=== PATIENT | female | born 1965 | race Caucasian/White ===

== ENCOUNTER 2017-02-04 07:32 | Inpatient (IN) | payer OTHER ==
[~2017-02-04] VITALS: Ht 175.3 cm; Wt 60.8 kg
[2017-02-04 14:15] VITALS: BP 113/78
[2017-02-04] MEDS ORDERED: LOPERAMIDE HCL 2 MG CAPSULE PO PRN ×2 (14:15)
[2017-02-04] MEDS ORDERED: MIRALAX 17 GM POWD.PACK PO PRN (14:15)
[2017-02-04] MEDS ORDERED: IBUPROFEN 400 MG TABLET PO PRN (14:15)
[2017-02-04] MEDS ORDERED: MAGNESIUM HYDROXIDE 30 ML LIQUID UDC PO PRN (14:15)
[2017-02-04] MEDS ORDERED: diphenhydrAMINE 50 MG CAPSULE PO PRN (14:15)
[2017-02-04] MEDS ORDERED: LORAZEPAM 2 MG/1 ML VIAL IM PRN (14:15)
[2017-02-04] MEDS ORDERED: TRAZODONE 50 MG TABLET PO PRN (14:15)
[2017-02-04] MEDS ORDERED: MAG HYDROX/AL HYDROX/SIMETH 30 ML LIQUID UDC PO PRN (14:15)
[2017-02-04] MEDS ORDERED: THIAMINE HCL 200 MG/2 ML VIAL IM ONE (14:15)
[2017-02-04] MEDS ORDERED: DICYCLOMINE HCL 20 MG TABLET PO PRN (14:15)
[2017-02-04] MEDS ORDERED: CLONIDINE HCL 0.1 MG TABLET PO PRN (14:15)
[2017-02-04] MEDS ORDERED: ONDANSETRON 4 MG/2 ML VIAL IM PRN (14:15)
[2017-02-04] MEDS ORDERED: ACETAMINOPHEN 325 MG TABLET PO PRN (14:15)
[2017-02-04] MEDS ORDERED: ONDANSETRON ODT 4 MG TAB.RAPDIS SL PRN (14:15)
[2017-02-04] MEDS ORDERED: LORAZEPAM 1 MG TABLET PO PRN ×2 (14:15)
--- NOTE | 2017-02-04 14:15 | NUR ---
INTAKE ASSESSMENT Received patient Aox4, stable, and ambulatory. Vital signs stable. Patient reports an allergy to PCN. Patient denies seizure history. Patient brought medications with her, none were controlled. Explained unit policies and protocols and patient verbalized understanding. Will admit patient upon arrival to 3rd floor.
--- NOTE | 2017-02-04 14:30 | NUR ---
ADMISSION NOTE VS: BP-113/78 HR-67 TEMP-96.1 RR-16 O2-95% HEIGHT: 5'9 WEIGHT: 134 LBS ALLERGIES: PCN [id number] KIM Patient is a 51 year old female admitted to [facility] on 02/04/17 at 1430. Patient is under the care of Dr. Ponce for ETOH and Benzo dependence. Patient denies suicidal or homicidal ideations at this time. Patient denies suicidal or homicidal ideations at this time. Patient denies being hospitalized in the last 30 days. Patient denies chest pain or SOB. Upon assessment, patient's skin is intact. Upon admission, CIWA 2. AOX4 and able to answer necessary questions for admission process. Patient is full code and regular diet. VS WNL. Patient denies any history of seizures. Breathing is even and unlabored. Patient ambulates with steady gait. Patient states her bowel habits are normal. Patient reports PMH of anxiety, depression, and hypothyroidism. Patient brought home medications with her which were reconciled. Patient reports this is her first time in treatment. Patient reports living alone. Patient states she does not smoke cigarettes. Dr. Ponce has been notified and placed client under observation. All needs have been met. Patient has been oriented to staff, unit, and room. All safety measures in place. Bed locked and in lowest position call rankin within reach. Will continue to monitor. Substance Abuse: ETOH 6 oz glass of white wine 3 times a week, last drank 6 oz 2 glass of white wine Po during her flight 02/04/17 at 1200 Xanax-1 mg Po as needed every 6 hours, last took 1 mg 02/03/17
[2017-02-04] MEDS ORDERED: ALPR1TAB7 PO (14:37)
[2017-02-04] MEDS ORDERED: SPIR25TA4 PO (14:37)
[2017-02-04] MEDS ORDERED: LEVO50TA PO (14:37)
[2017-02-04 15:05] LABS: *URINE HCG, QUAL NEGATIVE (NEGATIVE)
[2017-02-04] MEDS: GABAPENTIN 300 MG CAPSULE PO SCH ×2 (15:35→20:21)
[2017-02-04 16:00] VITALS: BP 106/72
[2017-02-04 17:06] LABS: ALANINE AMINOTRANSFERASE 20 U/L (14-59); ALKALINE PHOSPHATASE 60 U/L (50-136); AMYLASE 79 U/L (25-115); ASPARTATE AMINOTRANSFERASE 23 U/L (15-37); BILIRUBIN,TOTAL 0.2 mg/dL (0.2-1.0); CARBON DIOXIDE 33 mmol/L (21-32); CHLORIDE 105 mmol/L (98-107); GLUCOSE 80 mg/dL (74-106); LIPASE 229 U/L (73-393); MAGNESIUM 2.3 mg/dL (1.8-2.4); POTASSIUM 5.3 mmol/L (3.5-5.1); TOTAL PROTEIN, SERUM 7.1 g/dL (6.4-8.2); UREA NITROGEN, BLOOD 18 mg/dL (7-18)
[2017-02-04 17:09] LABS: BASOPHILS % (AUTO) 0.3 % (0.0-2.0); EOSINOPHILS # (AUTO) 0.3 K/uL (0.0-0.7); EOSINOPHILS % (AUTO) 4.9 % (0.0-7.0); HEMATOCRIT 41.8 % (37-47); HEMOGLOBIN 14.2 G/DL (12.0-16.0); LYMPHOCYTES # (AUTO) 1.7 K/UL (0.8-4.8); LYMPHOCYTES % (AUTO) 25.5 % (20.5-51.5); MEAN CORPUSCULAR HEMOGLOBIN 32.1 UUG (27.0-31.0); MEAN CORPUSCULAR HGB CONC 34 g/dL (32.0-37.0); MEAN CORPUSCULAR VOLUME 94.2 FL (81.0-99.0); MONOCYTES # (AUTO) 0.5 K/UL (0.1-1.30); MONOCYTES % (AUTO) 7.9 % (0.0-11.0); NEUTROPHILS # (AUTO) 4.1 K/UL (1.8-8.9); NEUTROPHILS % (AUTO) 61.4 % (38.5-71.5); PLATELET COUNT (AUTO) 256 K/UL (150-450); RED BLOOD CELL COUNT(AUTO) 4.44 MIL/UL (4.2-5.4); WHITE BLOOD COUNT (AUTO) 6.6 K/UL (4.0-11.2)
[2017-02-04 17:15] LABS: THYROID STIMULATING HORMONE 2.819 mIU/mL (0.358-3.740)
[2017-02-04 17:29] LABS: ETHANOL < 3 MG/DL (0-0)
[2017-02-04 17:47] LABS: *AMPHETAMINE, URINE NEGATIVE (NEGATIVE); *BARBITURATE, URINE NEGATIVE (NEGATIVE); *CANNABINOID, URINE NEGATIVE (NEGATIVE); *COCCAINE, URINE NEGATIVE (NEGATIVE); *OPIATE, URINE NEGATIVE (NEGATIVE); *PHENCYCLIDINE SCREEN,URINE NEGATIVE (NEGATIVE)
[2017-02-04] MEDS ORDERED: PROG200C3 PO (18:19)
[2017-02-04] MEDS ORDERED: FLUO40CA8 PO (18:19)
--- NOTE | 2017-02-04 19:14 | NUR ---
END OF SHIFT NOTE Gave report to night nurse, 51 year old female admitted for ETOH/Benzo dependence. Pt is allergic to PCN, Full code, Regular diet. Pt reported PMH of Anxiety, depression, Hypothyroidism. Pt reported first time in treatment. Skin intact warm and dry to touch. Pt did not receive any PRN, Last CIWA-1. Encouraged PO fluids as tolerated. Safety measures in place, Call light within reach. Pt endorsed to night nurse in stable condition.
[2017-02-04 20:00] VITALS: BP 105/67
--- NOTE | 2017-02-04 20:00 | NUR ---
START OF SHIFT NOTE PATIENT IN HER ROOM. ALERT AND ORIENTED X 4. PATIENT REPORTS ANXIOUS AND REQUESTING TO HAVE SLEEP AID LATER. PATIENT DENIES ANY PAIN, NO HEADACHE. NO N/V. NO SWEATING. DENIES SI/HI. RECEIVED REPORT FROM DAY SHIFT NURSE. PATIENT IS A 51 YEAR OLD FEMALE, ADMITTED FOR ETOH/BENZO DEPENDENCE. PATIENT IS ON 4 DAYS ATIVAN TAPER TO START TOMORROW. PATIENT IS FULL CODE, ALLERGIC TO PENICILLIN AND ON REGULAR DIET. PATIENT DRINKS 6OZ OF 3-4 GLASS OF WHITE WINE 3 TO 4 TIMES A WEEK SINCE 15 YEARS OLD. PATIENT IS ALSO ON XANAX 1 MG PO Q6HRS PRN PRESCRIBED FOR 9 MONTHS . PATIENT REPORTS PMH OF ANXIETY, DEPRESSION AND HYPOTHYROIDISM. FIRST TIME IN DETOX. SKIN INTACT. PATIENT DID NOT REQUIRE ANY PRN MEDICATION. LAST CIWA 1. ON FALL/SEIZURE PRECAUTION. SAFETY MEASURES IN PLACE. CALL LIGHT IN REACH. WILL CONTINUE TO MONITOR.
[2017-02-04] MEDS: HYDROXYZINE PAMOATE 25 MG CAPSULE PO PRN (20:21)
--- NOTE | 2017-02-04 20:21 | NUR ---
PRN VISTARIL ADMINISTRATION PATIENT REPORTS ANXIETY. PRN VISTARIL GIVEN. WILL MONITOR FOR EFFECTIVENESS
--- NOTE | 2017-02-04 21:21 | NUR ---
PRN VISTARIL RE-ASSESSMENT PATIENT IN BED ASLEEP. NO S/S OF DISTRESS. RESPIRATION EVEN AND UNLABORED. SAFETY MEASURES IN PLACE. CALL LIGHT IN REACH. WILL CONTINUE TO MONITOR.
[2017-02-05] VITALS: BP 112/66
[2017-02-05 04:00] VITALS: BP 103/70
[2017-02-05 06:06] LABS: HEPATITIS B SURFACE AG Negative (Negative)
--- NOTE | 2017-02-05 07:36 | NUR ---
END OF SHIFT NOTE PATIENT REMAIN ALERT AND ORIENTED X 4. PATIENT REPORTED ANXIOUS . PATIENT DENIES ANY PAIN, NO HEADACHE. NO N/V. NO SWEATING. DENIES SI/H DURING SHIFT. PATIENT IS A 51 YEAR OLD FEMALE, ADMITTED FOR ETOH/BENZO DEPENDENCE. PATIENT IS ON 5 DAYS ATIVAN TAPER TO START TODAY. PATIENT IS FULL CODE, ALLERGIC TO PENICILLIN AND ON REGULAR DIET. PATIENT DRINKS 6OZ OF 3-4 GLASS OF WHITE WINE 3 TO 4 TIMES A WEEK SINCE 15 YEARS OLD. PATIENT IS ALSO ON XANAX 1 MG PO Q6HRS PRN PRESCRIBED FOR 9 MONTHS . PATIENT REPORTED 97.9 PMH OF ANXIETY, DEPRESSION AND HYPOTHYROIDISM. FIRST TIME IN DETOX. SKIN INTACT. PATIENT WAS GIVEN PRN VISTARIL DURING SHIFT . LAST CIWA 1 . ON FALL/SEIZURE PRECAUTION. SAFETY MEASURES IN PLACE. CALL LIGHT IN REACH. WILL CONTINUE TO MONITOR. SLEPT 9 HOURS. FLUID INTAKE 592 ML. VOIDED X 2 . NO BM.
--- NOTE | 2017-02-05 07:50 | NUR ---
START OF SHIFT Rcvd endorsement from night nurse, client is is bed, she presents with anxious mood, flat affect, skin warm/moist to touch, she denies N/V/D or SI/HI. Encouraged to attend group therapy to learn skills to maintain sober. Encouraged to increase fluid therapy as tolerated to facilitate detox. She is on 5 day Ativan taper first dose at 0900 as indicated to manage symptoms of withdrawal. Last CIWA 1. She is full code, regular diet, allergy to PCN. She Adequate intake and output. Call light within reach. Safety measures instituted.
[2017-02-05] MEDS: MULTIVITAMINS,THERAPEUTIC TABLET PO SCH (08:39)
[2017-02-05] MEDS: GABAPENTIN 300 MG CAPSULE PO SCH ×3 (08:43→20:13)
[2017-02-05] MEDS: FOLIC ACID 1 MG TABLET PO SCH (08:43)
[2017-02-05] MEDS: DOCUSATE SODIUM 250 MG CAPSULE PO SCH (08:43)
[2017-02-05] MEDS: THIAMINE HCL 100 MG TABLET PO SCH (08:43)
[2017-02-05] MEDS: TUBERCULIN,PURIF.PROT.DERIV. 5 TU/0.1 ML TEST ID ONE ×2 (08:44→09:00)
[2017-02-05] MEDS: LORAZEPAM 1 MG TABLET PO SCH ×3 (08:44→20:13)
[2017-02-05 08:55] VITALS: BP 112/76
[2017-02-05] MEDS ORDERED: 5 DAY TAPER OF LORAZEPAM -SERENITY PROTOCOL PO PRN (09:00)
[2017-02-05 12:55] VITALS: BP 110/72
--- NOTE | 2017-02-05 15:17 | NUR ---
Therapist informed client of group times. Client said she is not feeling well.
[2017-02-05] MEDS: FLUOXETINE HCL 20 MG CAPSULE PO SCH (15:40)
[2017-02-05] MEDS ORDERED: PATIENT MAY USE OWN MED- MD OK PO SCH (16:00)
[2017-02-05] MEDS: PATIENT MAY USE OWN MED- MD OK PO SCH (16:57)
[2017-02-05 16:59] VITALS: BP_SYST 101; BP_SYST 122; BP_DIAS 62; BP_DIAS 81
--- NOTE | 2017-02-05 17:08 | NUR ---
MD NOTIFICATION Dr. Stubbs notified of cx-ray impression 1. Questionable 7 mm calcified nodule in the left upper lung peripherally which may represent a granuloma. 2. Otherwise no acute cardiopulmonary disease. Client is in bed, will continue to monitor.
--- NOTE | 2017-02-05 19:45 | NUR ---
END OF SHIFT Endorsed to incoming nurse, client is is bed, she presents with anxious mood, flat affect, fine tremors noted, she denies N/V/D. Ativan taper continues as indicated to manage symptoms of withdrawal. Last CIWA 7. She did not attend group therapy. Adequate intake and output. Call light within reach. Safety measures instituted.
[2017-02-05 20:00] VITALS: BP 107/75
--- NOTE | 2017-02-05 20:00 | NUR ---
START OF SHIFT NOTE PATIENT IN HER ROOM, WATCHING TV. PATIENT REPORTS ANXIETY AND NOTED WITH SLIGHT TREMORS. DENIES N/V/D. DENIES SI/HI. NO PAIN AT THIS TIME. RECEIVED REPORT FROM DAY SHIFT NURSE. PATIENT IS A 51 YEAR OLD FEMALE, ADMITTED FOR ETOH DEPENDENCE. PATIENT IS ON FIRST DAY OF HER 5 DAY ATIVAN TAPER. PATIENT DRINKS 6 OZ OF 3-4 GLASS OF WHITE WINE 3-4 X A WEEK SINCE 15 YEARS OLD. PATIENT IS ALSO ON XANAX 1 MG PO Q6 HOURS PRN PRESCRIBED FOR 9 MONTHS. PATIENT REPORTS PMH OF ANXIETY,DEPRESSION AND HYPOTHYROIDISM. SKIN INTACT.PATIENT DID NOT REQUIRE ANY PRN MEDICATION DURING THE DAY. LAST CIWA 7. ON FALL/SEIZURE PRECAUTION. SAFETY MEASURES IN PLACE. CALL LIGHT IN REACH. WILL CONTINUE TO MONITOR.
[2017-02-05] MEDS: QUETIAPINE FUMARATE 25 MG TABLET PO SCH (20:13)
[2017-02-06] VITALS: BP 107/75
[2017-02-06] MEDS ORDERED: ALBU8HFA4 (02:58)
[2017-02-06 04:00] VITALS: BP 112/73
[2017-02-06] MEDS: PATIENT MAY USE OWN MED- MD OK PO SCH ×2 (06:44→09:07)
--- NOTE | 2017-02-06 07:28 | NUR ---
END OF SHIFT NOTE MONITORED PATIENT THROUGHOUT THE SHIFT. PATIENT IS A 51 YEAR OLD FEMALE, ADMITTED FOR ETOH DEPENDENCE. PATIENT IS ON FIRST DAY OF HER 5 DAY ATIVAN TAPER,TOLERATED WELL . NO ADVERESE REACTION. PATIENT DRINKS 6 OZ OF 3-4 GLASS OF WHITE WINE 3-4 X A WEEK SINCE 15 YEARS OLD. PATIENT IS ALSO ON XANAX 1 MG PO Q6 HRS PRN PRESCRIBED FOR 9 MONTHS. PATIENT REPORTS PMH OF ANXIETY,DEPRESSION AND HYPOTHYROIDISM. SKIN INTACT.PATIENT DID NOT REQUIRE ANY PRN MEDICATION DURING THE DAY. PATIENT IN HER ROOM MOST OF THE SHIFT. ENCOURAGED TO PARTICIPATE IN GROUPS. ON FALL/SEIZURE PRECAUTION. SAFETY MEASURES IN PLACE. CALL LIGHT IN REACH. WILL CONTINUE TO MONITOR. SLEPT 8 HOURS. FLUID INTAKE 296 ML. VOIDED X 2. NO BM. LAST CIWA 1.
--- NOTE | 2017-02-06 07:45 | NUR ---
START OF SHIFT Rcvd endorsement from night nurse, client is is bed, she presents with depressed mood, flat affect and fine tremors, she reports fatigue and restless legs, she denies N/V/D or SI/HI. Encouraged to attend group therapy to learn skills to maintain sober. Encouraged to increase fluid therapy as tolerated to facilitate detox, she verbalized understanding.She denies ant history id withdrawal-induced seizure. Seizure precautions. She is on 2nd of 5 day Ativan taper to manage symptoms of withdrawal. Last CIWA 1@ 0400. She is full code, regular diet, allergy to PCN. She had an uneventful night, slept 8 hrs. Call light within reach. Bed in lowest/locked position. Side rails x 2 up/padded.
[2017-02-06 08:00] VITALS: BP 104/73
[2017-02-06] MEDS: LORAZEPAM 1 MG TABLET PO SCH ×4 (09:06→20:43)
[2017-02-06] MEDS: DOCUSATE SODIUM 250 MG CAPSULE PO SCH (09:06)
[2017-02-06] MEDS: FOLIC ACID 1 MG TABLET PO SCH (09:06)
[2017-02-06] MEDS: GABAPENTIN 300 MG CAPSULE PO SCH ×3 (09:06→20:43)
[2017-02-06] MEDS: MULTIVITAMINS,THERAPEUTIC TABLET PO SCH (09:06)
[2017-02-06] MEDS: THIAMINE HCL 100 MG TABLET PO SCH (09:06)
[2017-02-06] MEDS: FLUOXETINE HCL 20 MG CAPSULE PO SCH (09:07)
[2017-02-06 12:10] VITALS: BP 112/78
[2017-02-06] MEDS ORDERED: TUBERCULIN,PURIF.PROT.DERIV. 5 TU/0.1 ML TEST ID ONE (12:15)
--- NOTE | 2017-02-06 12:17 | NUR ---
Dr. Aaron Merchant saw client regarding screening xray that reveals a granuloma, regarding plan of care is for the client to consent for Tuberculin purified prot test, client consented and TB test was administered to L F/A. Client is asymptomatic she denies any fever, cough or night sweats.
--- NOTE | 2017-02-06 13:50 | NUR ---
Therapist informed client that there is daily group psychotherapy, at 11am and 3:30pm. Therapist explained some benefits of attending, and client related that she would be willing to participate and would attend the 11am group today.
[2017-02-06] MEDS: HYDROXYZINE PAMOATE 25 MG CAPSULE PO PRN (14:06)
--- NOTE | 2017-02-06 14:06 | NUR ---
LAZARO Vistaril Client reports anxiety, she is unable to sit still, Vistaril 50mg PO administered, breathing relaxation techniques instituted, reinforcement needed from client. Risk/benefits discuss, she verbalized understanding. Call light within reach.
--- NOTE | 2017-02-06 15:06 | NUR ---
Reassessment PRN Vistaril Client is in bed, watching TV, she appears less anxious, she stated "I feel a little better, thank you." Vistaril 50mg effective. Call light within reach.
[2017-02-06] MEDS ORDERED: ALBUTEROL SULFATE 1.25 MG/3 ML NEBU NEB PRN (15:15)
[2017-02-06 16:55] VITALS: BP 121/76
--- NOTE | 2017-02-06 19:11 | NUR ---
END OF SHIFT Endorsed to incoming nurse, client is is bed, she presents with depressed mood, flat affect, tremors felt, not observed, she denies N/V/D or night sweats. Ativan taper continues as indicated to manage symptoms of withdrawal. Last CIWA 5. She was compliant with group therapy. Adequate intake 1447mL and output void x 5. Call light within reach. Safety measures instituted.
[2017-02-06 20:00] VITALS: BP 116/66
--- NOTE | 2017-02-06 20:00 | NUR ---
Start of Shift Pt is a 51 year old female admitted for ETOH dependence, placed on a 5 day Ativan taper. PMH: Anxiety, Depression and Hypothyroidism. Allergic to PCN, regular diet, fall/seizure precautions and full code. Upon assessment, pt reports mild anxiety, chills throughout body, skin noted to be flushed, respirations even/unlabored, denies SOB/chest pain, denies n/v/d, bowel sounds active x4, abdomen soft. Safety measures in place, call light within reach, side rails up x2, bed locked and in low position. Will continue to monitor.
[2017-02-06] MEDS: QUETIAPINE FUMARATE 25 MG TABLET PO SCH (20:43)
[2017-02-07] VITALS: BP 108/72
--- NOTE | 2017-02-07 | NUR ---
Vital Signs BP 108/72, Pulse 68, respirations 16, SpO2 97, temp 97.7, pain 0/10 CIWA deferred d/t pt sleeping - to assess while pt is awake as ordered. Safety measures in place. Will continue to monitor.
[2017-02-07 04:00] VITALS: BP 118/72
--- NOTE | 2017-02-07 04:00 | NUR ---
Vital Signs BP 118/72, Pulse 55, respirations 12, SpO2 97%, temp 98.2, pain 0/10 CIWA deferred d/t pt sleeping - to assess while pt is awake as ordered. Safety measures in place. Will continue to monitor.
[2017-02-07] MEDS: PATIENT MAY USE OWN MED- MD OK PO SCH ×2 (06:45→08:20)
--- NOTE | 2017-02-07 07:00 | NUR ---
End of Shift Pt is a 51 year old female admitted for ETOH dependence, placed on a 5 day Ativan taper. PMH: Anxiety, Depression and Hypothyroidism. Allergic to PCN, regular diet, fall/seizure precautions and full code. During shift, pt presented with mild anxiety, chills throughout body, skin noted to be flushed - scheduled taper medications administered, effective in management of s/s of withdrawal, as reported per pt, CIWA 4. No PRN medications administered. Pt slept for 8 hours, intake of 500 ml PO and voids x2. Safety measures in place, call light within reach, side rails up x2, bed locked and in low position. Endorsed to day shift.
--- NOTE | 2017-02-07 07:30 | NUR ---
START OF SHIFT NOTE Pt is a 51 year old female admitted for ETOH dependence, placed on a 5 day Ativan taper. No history of seizures. History of depression, anxiety, and thyroid disease. Patient is laying in bed awake. Respirations even and unlabored. Patient reports,"feeling ok, just a little groggy". Slept 8 hours last night. Last CIWA 4.
[2017-02-07 07:53] LABS: CREATININE 1.1 mg/dL (0.6-1.3); POTASSIUM 4.5 mmol/L (3.5-5.1)
[2017-02-07 08:01] VITALS: BP 101/72
[2017-02-07] MEDS: MULTIVITAMINS,THERAPEUTIC TABLET PO SCH (08:19)
[2017-02-07] MEDS: THIAMINE HCL 100 MG TABLET PO SCH (08:19)
[2017-02-07] MEDS: LORAZEPAM 1 MG TABLET PO SCH ×3 (08:19→20:15)
[2017-02-07] MEDS: FLUOXETINE HCL 20 MG CAPSULE PO SCH (08:20)
[2017-02-07] MEDS: DOCUSATE SODIUM 250 MG CAPSULE PO SCH (08:20)
[2017-02-07] MEDS: GABAPENTIN 300 MG CAPSULE PO SCH ×3 (08:20→20:15)
[2017-02-07] MEDS: FOLIC ACID 1 MG TABLET PO SCH (08:20)
--- NOTE | 2017-02-07 10:52 | NUR ---
NSG note Pt observed in room on bed watching television. No distress noted at this time.
[2017-02-07 12:00] VITALS: BP 145/93
[2017-02-07 16:00] VITALS: BP 105/62
--- NOTE | 2017-02-07 18:14 | NUR ---
END OF SHIFT Pt 51 y/o female admitted for etoh / benzo dependence. Pt alert and oriented to name, place, and time. Perrla. Skin warm and dry to touch. Respirations even and unlabored. Bilateral hand tremors noted. Pt with periods of anxiety this morning. Pt observed mostly isolative to room , but did attend group activity. Pt was seen by Dr. Stubbs today. Pt medication compliant and tolerated well. No ASE noted. Bed on lowest positions with side rails x2 up for safety. Call light within reach. No distress noted at this time.
[2017-02-07 20:00] VITALS: BP 124/83
--- NOTE | 2017-02-07 20:00 | NUR ---
Start of Shift Pt is a 51 year old female admitted for ETOH dependence, placed on a 5 day Ativan taper. PMH: Anxiety, Depression and Hypothyroidism. Allergic to PCN, regular diet, fall/seizure precautions and full code. Upon assessment, pt reports mild anxiety, tremors felt upon touch, skin noted to be flushed, respirations even/unlabored, denies SOB/chest pain, denies n/v/d, bowel sounds active x4, abdomen soft. Safety measures in place, call light within reach, side rails up x2, bed locked and in low position. Will continue to monitor.
[2017-02-07] MEDS: QUETIAPINE FUMARATE 25 MG TABLET PO SCH (20:15)
[2017-02-08] VITALS: BP 102/73
--- NOTE | 2017-02-08 | NUR ---
Vital Signs BP 102/73, Pulse 69, respirations 14, SpO2 98%, temp 97.7, pain 0/10 CIWA deferred d/t pt sleeping - to assess while pt is awake as ordered. Safety measures in place. Will continue to monitor.
[2017-02-08 04:00] VITALS: BP 108/74
--- NOTE | 2017-02-08 04:00 | NUR ---
Vital Signs BP 108/74, Pulse 62, respirations 20, SpO2 99%, temp 98, pain 0/10 CIWA deferred d/t pt sleeping - to assess while pt is awake as ordered. Safety measures in place. Will continue to monitor.
[2017-02-08] MEDS: PATIENT MAY USE OWN MED- MD OK PO SCH (06:43)
--- NOTE | 2017-02-08 07:00 | NUR ---
End of Shift Pt is a 51 year old female admitted for ETOH dependence, placed on a 5 day Ativan taper. PMH: Anxiety, Depression and Hypothyroidism. Allergic to PCN, regular diet, fall/seizure precautions and full code. During shift, pt presented with mild anxiety, tremors felt upon touch, skin noted to be flushed - scheduled taper medications administered, effective in managment of s/s of withdrawal, CIWA 2. No PRN medications administered. Pt slept for 8 hours, intake of 1646 ml PO and voids x3. Safety measures in place, call light within reach, side rails up x2, bed locked and in low position. Endorsed to day shift nurse.
--- NOTE | 2017-02-08 07:48 | NUR ---
START OF SHIFT NOTE Patient is laying in bed comfortably. Stated," slept good last night". patient slept 8 hours. No PRNs given last night. Last CIWA 2 per night nurse. pt is on 5 day Ativan taper. Encourage patient to participate in groups and activities. All safety measures in place. Pt went back to sleep with bed locked in lowest position, call light within reach, wheels locked. will continue to monitor pt.
[2017-02-08 08:00] VITALS: BP 111/76
[2017-02-08] MEDS: SPIRONOLACTONE 25 MG TABLET PO SCH (09:32)
[2017-02-08] MEDS: FOLIC ACID 1 MG TABLET PO SCH (09:33)
[2017-02-08] MEDS: GABAPENTIN 300 MG CAPSULE PO SCH ×3 (09:33→21:24)
[2017-02-08] MEDS: MULTIVITAMINS,THERAPEUTIC TABLET PO SCH (09:33)
[2017-02-08] MEDS: THIAMINE HCL 100 MG TABLET PO SCH (09:33)
[2017-02-08] MEDS: DOCUSATE SODIUM 250 MG CAPSULE PO SCH (09:33)
[2017-02-08] MEDS: LORAZEPAM 1 MG TABLET PO SCH ×2 (09:33→21:25)
[2017-02-08] MEDS: FLUOXETINE HCL 20 MG CAPSULE PO SCH (09:39)
[2017-02-08 12:00] VITALS: BP 128/82
[2017-02-08 16:00] VITALS: BP 116/82
--- NOTE | 2017-02-08 18:38 | NUR ---
END OF SHIFT NOTE Patient is on a 5 day Ativan taper. Vital sign remain stable throughout the day. No PRNs given. Last CIWA 3. Patient has been complaint with medications. Patient has walked around the unit today and socialized with peers. Safety measures in place. Patient laying in bed with bed in lowest position, wheels locked, and call light within reach. All needs have been met. Will pass shift report to oncoming nurse.
[2017-02-08 20:00] VITALS: BP 119/79
--- NOTE | 2017-02-08 20:00 | NUR ---
START OF SHIFT NOTE PATIENT IN HER ROOM. ALERT AND ORIENTED X 4. RESPIRATION EVEN AND UNLABORED. PATIENT REPORTS ANXIETY. DENIES ANY PAIN AT THIS TIME . NO N/V. RECEIVED REPORT FROM DAY SHIFT NURSE. PATIENT IS A 51 YEAR OLD FEMALE, ADMITTED FOR ETOH/BENZO DEPENDENCE. PATIENT IS ON 4TH DAY OF HER 5 DAY ATIVAN TAPER. ON ADMISSION, PATIENT REPORTED DRINKING 6OZ OF 3-4 GLASS 3-4X A WEEK SINCE 15 YEARS OLD AND TAKING XANAX 1 MG PO Q6HRS PRN PRESCRIBED FOR 9 MONTHS. NO SEIZURE HISTORY. PATIENT IS FULL CODE, REGULAR DIET AND ALLERGIC TO PENICILLIN. SKIN INTACT. PATIENT DID NOT REQUIRE ANY PRN MEDICATION DURING THE DAY. LAST CIWA 3. ON FALL/SEIZURE PRECAUTION. SAFETY MEASURES IN PLACE. CALL LIGHT IN REACH. WILL CONTINUE TO MONITOR.
[2017-02-08] MEDS: QUETIAPINE FUMARATE 25 MG TABLET PO SCH (21:24)
[2017-02-09] VITALS: BP 97/59
--- NOTE | 2017-02-09 | NUR ---
CIWA/VS CIWA DEFERRED D/T PATIENT SLEEPING. RESPIRATION EVEN AND UNLABORED RR 14. SAFETY MEASURES IN PLACE. CALL LIGHT IN REACH. WILL CONTINUE TO MONITOR.
--- NOTE | 2017-02-09 04:00 | NUR ---
CIWA/VS CIWA DEFERRED D/T PATIENT SLEEPING. RESPIRATION EVEN AND UNLABORED RR 15. SAFETY MEASURES IN PLACE. CALL LIGHT IN REACH. WILL CONTINUE TO MONITOR.
[2017-02-09] MEDS: PATIENT MAY USE OWN MED- MD OK PO SCH (06:36)
--- NOTE | 2017-02-09 07:10 | NUR ---
END OF SHIFT NOTE PATIENT REMAIN ALERT AND ORIENTED X 4. RESPIRATION EVEN AND UNLABORED. PATIENT REPORTED ANXIETY. DENIES ANY PAIN .NO N/V. PATIENT IS A 51 YEAR OLD FEMALE, ADMITTED FOR ETOH/BENZO DEPENDENCE. PATIENT IS ON 4TH DAY OF HER 5 DAY ATIVAN TAPER, TOLERATED WELL, ADVERSE REACTION. ON ADMISSION, PATIENT REPORTED DRINKING 6OZ OF 3-4 GLASS 3-4X A WEEK SINCE 15 YEARS OLD AND TAKING XANAX 1 MG PO Q6HRS PRN PRESCRIBED FOR 9 MONTHS. NO SEIZURE HISTORY. PATIENT IS FULL CODE, REGULAR DIET AND ALLERGIC TO PENICILLIN. SKIN INTACT. PATIENT DID NOT REQUIRE ANY PRN MEDICATION DURING THE SHIFT . LAST CIWA 3. ON FALL/SEIZURE PRECAUTION. SAFETY MEASURES IN PLACE. CALL LIGHT IN REACH. WILL CONTINUE TO MONITOR. SLEPT 7 HOURS. FLUID INTAKE 1,550 ML. VOIDED X 2 . NO BM .
--- NOTE | 2017-02-09 07:36 | NUR ---
START OF SHIFT NOTE Received pt this AM AOx4. Patient laying in bed reading and states "I feel good." She reports restless sleep last night on and off. She slept about 7 hours. Patient continues on Ativan taper. No PRNs given during live in caregiver. Last CIWA 3 per night nurse. Will provide safe and supportive environment. Will continue to monitor.
[2017-02-09 08:00] VITALS: BP 100/65
[2017-02-09] MEDS: THIAMINE HCL 100 MG TABLET PO SCH (09:10)
[2017-02-09] MEDS: MULTIVITAMINS,THERAPEUTIC TABLET PO SCH (09:10)
[2017-02-09] MEDS: FLUOXETINE HCL 20 MG CAPSULE PO SCH (09:10)
[2017-02-09] MEDS: FOLIC ACID 1 MG TABLET PO SCH (09:10)
[2017-02-09] MEDS: DOCUSATE SODIUM 250 MG CAPSULE PO SCH (09:10)
[2017-02-09] MEDS: GABAPENTIN 300 MG CAPSULE PO SCH ×3 (09:10→21:36)
[2017-02-09] MEDS: SPIRONOLACTONE 25 MG TABLET PO SCH (09:11)
[2017-02-09 12:00] VITALS: BP 128/92
[2017-02-09] MEDS: FLUTICASONE PROP NASAL SPRAY 16 GM BOTTLE NS SCH (13:08)
[2017-02-09 16:00] VITALS: BP 124/77
[2017-02-09 19:01] LABS: *AMPHETAMINE, URINE NEGATIVE (NEGATIVE); *BARBITURATE, URINE NEGATIVE (NEGATIVE); *CANNABINOID, URINE NEGATIVE (NEGATIVE); *COCCAINE, URINE NEGATIVE (NEGATIVE); *OPIATE, URINE NEGATIVE (NEGATIVE); *PHENCYCLIDINE SCREEN,URINE NEGATIVE (NEGATIVE)
--- NOTE | 2017-02-09 19:01 | NUR ---
END OF SHIFT NOTE Gave repot to night nurse,51 year old female admitted for ETOH dependence, pt completed her 5 day Ativan taper tolerated well. Pt reported PMH: Anxiety, Depression and Hypothyroidism. Allergic to PCN, regular diet, fall/seizure precautions and full code. No PRN medications given during shift. Vital signs WNL. Pt was seen by Dr. Stubbs with new order of nasal spray for rhinitis administered medication as ordered no ase noted. Pt scheduled for discharge in am urine drug screen completed. Skin intact warm and dry to touch. Last CIWA-1. All needs attended. Safety measures in place, Call light within reach. Endorsed pt night nurse in stable condition.
[2017-02-09] MEDS ORDERED: FLUT16SP NS (19:20)
[2017-02-09] MEDS ORDERED: TRAZ-144 PO (19:21)
[2017-02-09] MEDS ORDERED: GABA-534 PO (19:21)
[2017-02-09] MEDS ORDERED: HYDR-3895 PO (19:21)
[2017-02-09 20:00] VITALS: BP 136/86
--- NOTE | 2017-02-09 20:00 | NUR ---
START OF SHIFT NOTE RECEIVED REPORT FROM DAY SHIFT NURSE. PATIENT IS A 51 YEAR OLD FEMALE, ADMITTED FOR ETOH/BENZO DEPENDENCE. PATIENT IS FULL CODE, REGULAR DIET AND ALLERGIC TO PENICILLIN. PATIENT COMPLETED 5 DAY ATIVAN TAPER, TOLERATED WELL. NO ADVERSE REACTION. PATIENT IS MEDICALLY CLEARED TO BE DISCHARGED TOMORROW. UPON ADMISSION, PATIENT DRINKS 6OZ OF WHITE WINE 3-4 GLASS 3-4X A WEEK SINCE 15 YEARS OLD AND TAKES XANAX 1 MG Q6HRS PRN PRESCRIBED FOR 9 MONTHS. PATIENT REPORTS PMH OF ANXIETY, DEPRESSION AND HYPOTHYROIDISM, NO SEIZURE HISTORY. SKIN INTACT. PATIENT DID NOT REQUIRE ANY PRN MEDICATION DURING THE DAY. VS WNL. LAST CIWA 1. PATIENT ALERT AND ORIENTED X 4. RESPIRATION EVEN AND UNLABORED. NO N/V/D. DENIES ANY PAIN AT THIS TIME. UPON GREETING, PATIENT STATES SHES ALRIGHT BUT SLIGHTLY ANXIOUS. SAFETY MEASURES IN PLACE. CALL LIGHT IN REACH. WILL CONTINUE TO MONITOR.
[2017-02-09] MEDS: QUETIAPINE FUMARATE 25 MG TABLET PO SCH (21:36)
--- NOTE | 2017-02-09 21:36 | NUR ---
PRN MOTRIN ADMINISTRATION PATIENT C/O HEADACHE 01/05. PRN HASSAN GIVEN. WILL MONITOR FOR EFFECTIVENESS
--- NOTE | 2017-02-09 22:36 | NUR ---
PRN MOTRIN RE-ASSESSMENT PATIENT STATES MOTRIN IS HELPFUL. PAIN LEVEL 2/10, TOLERABLE. WILL CONTINUE TO MONITOR
--- NOTE | 2017-02-10 | NUR ---
CIWA/VS PATIENT IN BED ASLEEP. CIWA DEFERRED. RESPIRATION EVEN AND UNLABORED. RR 14. NO S/S OF DISTRESS. SAFETY MEASURES IN PLACE. CALL LIGHT IN REACH. WILL CONTINUE TO MONITOR.
[2017-02-10] MEDS: PATIENT MAY USE OWN MED- MD OK PO SCH (06:51)
--- NOTE | 2017-02-10 07:16 | NUR ---
END OF SHIFT NOTE PATIENT IS A 51 YEAR OLD FEMALE, ADMITTED FOR ETOH/BENZO DEPENDENCE. PATIENT IS FULL CODE, REGULAR DIET AND ALLERGIC TO PENICILLIN. PATIENT COMPLETED 5 DAY ATIVAN TAPER, TOLERATED WELL. NO ADVERSE REACTION. PATIENT IS MEDICALLY CLEARED TO BE DISCHARGED TOMORROW. UPON ADMISSION, PATIENT DRINKS 6OZ OF WHITE WINE 3-4 GLASS 3-4X A WEEK SINCE 15 YEARS OLD AND TAKES XANAX 1 MG Q6HRS PRN PRESCRIBED FOR 9 MONTHS. PATIENT REPORTS PMH OF ANXIETY, DEPRESSION AND HYPOTHYROIDISM, NO SEIZURE HISTORY. SKIN INTACT. PATIENT REMAIN ALERT AND ORIENTED X 4. RESPIRATION EVEN AND UNLABORED. NO N/V/D. DENIES ANY PAIN. PATIENT WAS GIVEN PRN MOTRIN FOR HEADACHE. PATIENT COMPLIANT WITH MEDICATIONS. SAFETY MEASURES IN PLACE. CALL LIGHT IN REACH. WILL CONTINUE TO MONITOR. SLEPT 7 HOURS. FLUID INTAKE 500 ML. VOIDED X 2. NO BM. LAST CIWA 1 .
--- NOTE | 2017-02-10 07:30 | NUR ---
Start of shift note: received pt from overnight stocker nurse, pt is in stable condition at this time. pt is admitted to [facility] for etoh/benzo withdrawal/dependence. pts last ciwa 1 and pt slept for 7 hrs.will assist pt in discharging and continue to monitor pt for any changes
[2017-02-10 08:00] VITALS: BP 104/69
[2017-02-10] MEDS: SPIRONOLACTONE 25 MG TABLET PO SCH (08:27)
[2017-02-10] MEDS: FLUTICASONE PROP NASAL SPRAY 16 GM BOTTLE NS SCH (08:28)
[2017-02-10] MEDS: GABAPENTIN 300 MG CAPSULE PO SCH (08:28)
[2017-02-10] MEDS: DOCUSATE SODIUM 250 MG CAPSULE PO SCH (08:28)
[2017-02-10] MEDS: FLUOXETINE HCL 20 MG CAPSULE PO SCH (08:29)
[2017-02-10] MEDS: FOLIC ACID 1 MG TABLET PO SCH (08:29)
[2017-02-10] MEDS: MULTIVITAMINS,THERAPEUTIC TABLET PO SCH (08:29)
[2017-02-10] MEDS: THIAMINE HCL 100 MG TABLET PO SCH (08:29)
[2017-02-10] MEDS ORDERED: LORATIDINE-PSEUDOEPHEDRINE 1 EACH TAB.SR.24H PO SCH (09:00)
--- NOTE | 2017-02-10 09:45 | NUR ---
discharge note: pt left the unit in stable condition no s/s of withdrawal, discomfort or pain. pt teaching was administered and pt verbalized understanding. pts V/S WNL. pt left with all personal belongings and was transferred to breathe via private car
== END 2017-02-10 09:45 | disposition other institution (70) | DRG 895 ==
LOC: SRC 13:35
PROVIDERS: ADMIT Internal Medicine; ATTEND Internal Medicine
PROC: HZ2ZZZZ Detoxification Services for Substance Abuse Treatment (ICD-10-PCS; principal; 2017-02-04)
PROC: HZ31ZZZ Individual Counseling for Substance Abuse Treatment, Behavioral (ICD-10-PCS; 2017-02-06)
PROC: HZ41ZZZ Group Counseling for Substance Abuse Treatment, Behavioral (ICD-10-PCS; 2017-02-06)
DX: F10.230 Alcohol dependence with withdrawal, uncomplicated (principal); F33.2 Major depressive disorder, recurrent severe without psychotic features; F13.20 Sedative, hypnotic or anxiolytic dependence, uncomplicated; Y90.9 Presence of alcohol in blood, level not specified; E03.9 Hypothyroidism, unspecified; G47.00 Insomnia, unspecified; Z81.8 Family history of other mental and behavioral disorders; Z82.49 Family history of ischemic heart disease and other diseases of the circulatory system; Z81.1 Family history of alcohol abuse and dependence; Z83.3 Family history of diabetes mellitus; Z79.899 Other long term (current) drug therapy; F11.10 Opioid abuse, uncomplicated; F12.10 Cannabis abuse, uncomplicated; J84.10 Pulmonary fibrosis, unspecified; E87.5 Hyperkalemia; F41.9 Anxiety disorder, unspecified; J30.9 Allergic rhinitis, unspecified
CPT/HCPCS: 36415; 70030-TC; 71010; 80307; 80346; 83690; 83735; 84443; 84703; 85025; 86580; 86592; 86705; 86803; 87340; 87806; G0480; J3411; J3535